=== PATIENT | male | born 1990 | race African-American/Black ===

== ENCOUNTER 2017-09-14 08:55 | Emergency (ER) | payer SELFPAY ==
[~2017-09-14] VITALS: Ht 180.3 cm; Wt 117.9 kg
[2017-09-14 09:23] VITALS: BP 138/74
== END 2017-09-14 09:52 | disposition home or self-care (01) ==
LOC: ER 08:55
DX: J20.9 Acute bronchitis, unspecified (principal); F17.210 Nicotine dependence, cigarettes, uncomplicated

== ENCOUNTER 2018-06-18 18:15 | Emergency (ER) | payer BC, MEDICAID ==
[~2018-06-18] VITALS: Ht 180.3 cm; Wt 113.4 kg
[2018-06-18 19:00] LABS: Urine Bacteria NONE SEEN /hpf (None Seen); Urine Blood Negative /uL (Negative); Urine Specific Gravity 1.028 (1.001-1.035); Urine WBC 1 /hpf (0 - 3)
[2018-06-18 19:10] LABS: Alcohol, Urine < 3.0 mg/dL (0-5); Amphetamine Screen, Urine NEGATIVE (NEGATIVE); Barbiturate Scree,Urine NEGATIVE (NEGATIVE); Benzodiazephine Screen, Urine NEGATIVE (NEGATIVE); Cannabinoid Screen, Urine POSITIVE (NEGATIVE); Cocaine Screen, Urine NEGATIVE (NEGATIVE); Opiate Scree,Urine NEGATIVE (NEGATIVE); Phencyclidine Screen, Urine NEGATIVE (NEGATIVE)
[2018-06-18 19:10] LABS: Alanine Aminotransferase 49 U/L (16-61); Albumin 3.6 g/dL (3.4-5.0); Anion Gap 9 (5-15); Aspartate Aminotransferase 26 U/L (15-37); BUN/Creatinine Ratio 11.5; Blood Urea Nitrogen 13 mg/dL (7-18); Calcium 8.2 mg/dL (8.5-10.1); Carbon Dioxide 22 mmol/L (21-32); Chloride 110 mmol/L (98-107); GFR African American 98 mL/min; GFR Non-African American 81 mL/min; Glucose 115 mg/dL (74-106); Potassium 3.8 mmol/L (3.5-5.1); Sodium 141 mmol/L (136-145)
[2018-06-18 19:15] LABS: Alkaline Phosphatase 79 U/L (45-117); Bilirubin, Total 0.2 mg/dL (0.2-1.0); Total Protein 7.1 g/dL (6.4-8.2)
[2018-06-18 19:34] LABS: Basophils # (auto) 0.1 uL; Basophils % (auto) 0.6 % (0.0-2.0); Eosinophils # (auto) 0.2 uL; Eosinophils % (auto) 1.7 % (0.0-7.0); Hematocrit 44.6 % (41.0-53.0); Hemoglobin 14.8 g/dL (13.5-17.5); Lymphocytes # (auto) 2.4 uL; Lymphocytes % (auto) 27.5 % (10.0-50.0); Mean Corpuscular Hemoglobin 29.3 pg (28.0-32.0); Mean Corpuscular Hgb Conc. 33.2 g/dL (32.0-36.0); Monocytes # (auto) 0.6 uL; Monocytes % (auto) 7.4 % (0.0-12.0); Neutrophils # (auto) 5.4 uL; Neutrophils % (auto) 62.8 % (37.0-80.0); Nucleated Red Blood Cells % 0.1 %; Platelet Count (auto) 255 10^3/uL (140-450); Red Blood Cells 5.07 10^6/uL (4.5-5.90); Red Cell Distribution Width 12.9 % (11.8-14.3); White Blood Cell 8.6 10^3/uL (4.4-10.8)
[2018-06-18] MEDS ORDERED: ASPirin 81 mg TAB PO ONE (21:00)
[2018-06-18 21:39] VITALS: BP 87/60
== END 2018-06-18 22:31 | disposition home or self-care (01) ==
LOC: ER 18:15
DX: R07.89 Other chest pain (principal); F17.210 Nicotine dependence, cigarettes, uncomplicated
CPT/HCPCS: 36415; 71045; 80053; 80307; 81001; 84484; 85025; 85379; 93005

== ENCOUNTER 2018-08-18 20:02 | Emergency (ER) | payer MEDICAID, OTHER ==
[~2018-08-18] VITALS: Ht 180.3 cm; Wt 127.5 kg
[2018-08-18] MEDS ORDERED: ALBUTEROL SULF 2.5 MG/0.5ML(0.5%) NEB SOLN NEB ONE (23:45)
[2018-08-18] MEDS ORDERED: IPRATROPIUM BROM 0.5 MG/2.5ML INH SOL NEB ONE (23:45)
[2018-08-19] VITALS: BP 140/72
== END 2018-08-19 00:11 | disposition home or self-care (01) ==
LOC: ER 20:03
DX: J40 Bronchitis, not specified as acute or chronic (principal); F17.210 Nicotine dependence, cigarettes, uncomplicated
CPT/HCPCS: 71046; 94640; 99283; J7611; J7644

== ENCOUNTER 2018-11-16 14:13 | Emergency (ER) | payer OTHER ==
[~2018-11-16] VITALS: Ht 180.3 cm; Wt 104.3 kg
[2018-11-16 14:48] VITALS: BP 135/83
== END 2018-11-16 19:01 | disposition left against medical advice (07) ==
LOC: ER 14:13
DX: R10.13 Epigastric pain (principal); F17.210 Nicotine dependence, cigarettes, uncomplicated; Z53.29 Procedure and treatment not carried out because of patient's decision for other reasons

== ENCOUNTER 2020-10-20 08:43 | Emergency (ER) | payer MEDICAID, OTHER ==
[~2020-10-20] VITALS: Ht 180.3 cm; Wt 117.9 kg
[2020-10-20 09:23] VITALS: BP 121/85
== END 2020-10-20 09:39 | disposition home or self-care (01) ==
LOC: ER 08:43
DX: H00.015 Hordeolum externum left lower eyelid (principal); H00.021 Hordeolum internum right upper eyelid; F17.210 Nicotine dependence, cigarettes, uncomplicated

== ENCOUNTER 2020-11-03 13:12 | Emergency (ER) | payer MEDICAID ==
[~2020-11-03] VITALS: Ht 180.3 cm; Wt 113.4 kg
[2020-11-03 15:15] VITALS: BP 122/77
== END 2020-11-03 15:20 | disposition home or self-care (01) ==
LOC: ER 13:12
DX: S39.012A Strain of muscle, fascia and tendon of lower back, initial encounter (principal); F17.210 Nicotine dependence, cigarettes, uncomplicated; X50.1XXA Overexertion from prolonged static or awkward postures, initial encounter; Y93.89 Activity, other specified; Y92.89 Other specified places as the place of occurrence of the external cause; Y99.8 Other external cause status
CPT/HCPCS: 72100

== ENCOUNTER 2021-05-19 12:27 | Emergency (ER) | payer MEDICAID ==
[~2021-05-19] VITALS: Ht 180.3 cm; Wt 117.9 kg
[2021-05-19 14:55] VITALS: BP 129/87
== END 2021-05-19 15:07 | disposition home or self-care (01) ==
LOC: ER 12:27
DX: J20.9 Acute bronchitis, unspecified (principal); F17.210 Nicotine dependence, cigarettes, uncomplicated; Z20.822 Contact with and (suspected) exposure to COVID-19
CPT/HCPCS: 36415; 87426

== ENCOUNTER 2021-08-16 02:18 | Emergency (ER) | payer MEDICAID ==
[~2021-08-16] VITALS: Ht 180.3 cm; Wt 117.9 kg
[2021-08-16 02:18] VITALS: BP 159/96
[2021-08-16 05:27] LABS: Urine Bacteria NONE SEEN /hpf (None Seen); Urine Blood Negative /uL (Negative); Urine Mucus FEW (None Seen); Urine Specific Gravity 1.013 (1.001-1.035); Urine WBC 1 /hpf (0 - 3)
== END 2021-08-16 04:54 | disposition home or self-care (01) ==
LOC: ER 02:18
DX: R00.2 Palpitations (principal); F10.10 Alcohol abuse, uncomplicated; F17.210 Nicotine dependence, cigarettes, uncomplicated; F12.10 Cannabis abuse, uncomplicated; F14.10 Cocaine abuse, uncomplicated
CPT/HCPCS: 81001; 93005

== ENCOUNTER 2022-01-24 20:31 | Emergency (ER) | payer MEDICAID ==
[~2022-01-24] VITALS: Ht 180.3 cm; Wt 116.0 kg
[2022-01-24] MEDS ORDERED: PRED20TA2 PO (23:02)
[2022-01-24] MEDS ORDERED: ALBUAER3 IN (23:02)
[2022-01-24] MEDS ORDERED: AZIT250T9 PO (23:02)
[2022-01-25 00:25] VITALS: BP 130/68
== END 2022-01-25 00:30 | disposition home or self-care (01) ==
LOC: ER 20:31
DX: U07.1 COVID-19 (principal); F17.210 Nicotine dependence, cigarettes, uncomplicated; F12.10 Cannabis abuse, uncomplicated
CPT/HCPCS: 36415; 71045; 87804

== ENCOUNTER 2022-12-10 18:22 | Emergency (ER) | payer MEDICAID ==
[~2022-12-10] VITALS: Ht 180.3 cm; Wt 110.8 kg
[~2022-12-10 18:22] MED LIST: ALBUAER3 IN; AZIT-43 PO; PRED20TA2 PO
[2022-12-10] MEDS ORDERED: AMOX875T4 PO (22:35)
[2022-12-10] MEDS ORDERED: IBUP-1456 PO (22:35)
[2022-12-10] MEDS ORDERED: HUR60 MT (22:35)
[2022-12-10] MEDS ORDERED: CLINDAMYCIN 600MG IV 50 ML IV ONE (22:45)
[2022-12-10] MEDS ORDERED: KETOROLAC TROMETH 30 MG/ML 1ML VIAL IV ONE (22:45)
[2022-12-10] MEDS ORDERED: CLINDAMYCIN 300MG IV 50 ML IV ONE ×2 (23:30)
[2022-12-11 05:05] VITALS: BP 120/66
== END 2022-12-11 05:20 | disposition home or self-care (01) ==
LOC: ER 18:24
DX: K04.7 Periapical abscess without sinus (principal); F17.210 Nicotine dependence, cigarettes, uncomplicated; Z79.1 Long term (current) use of non-steroidal anti-inflammatories (NSAID); Z79.2 Long term (current) use of antibiotics; Z79.899 Other long term (current) drug therapy
CPT/HCPCS: 96365; 96375; 99284; J1885; J3490

== ENCOUNTER 2023-02-05 21:38 | Emergency (ER) | payer MEDICAID ==
[~2023-02-05] VITALS: Ht 180.3 cm; Wt 107.7 kg
[~2023-02-05 21:38] MED LIST changes: +AMOX875T4 PO; +HUR60 MT; +IBUP-1456 PO
[2023-02-05 22:00] VITALS: BP 106/59; PULSE 60; RESP 16; TEMP 98.7; O2SAT 100
[2023-02-06] MEDS ORDERED: KETOROLAC TROMETH 60MG/2ML VIAL IM ONE (02:45)
[2023-02-06] MEDS ORDERED: CYCL-837 PO (02:48)
[2023-02-06] MEDS ORDERED: IBUP-1456 PO (02:48)
== END 2023-02-06 03:15 | disposition home or self-care (01) ==
LOC: ER 21:38
DX: S63.501A Unspecified sprain of right wrist, initial encounter (principal); X50.0XXA Overexertion from strenuous movement or load, initial encounter; Y93.89 Activity, other specified; Y92.89 Other specified places as the place of occurrence of the external cause; Y99.8 Other external cause status
CPT/HCPCS: 29125; 73110; 96372; 99283; J1885

== ENCOUNTER 2023-08-26 13:33 | Emergency (ER) | payer MEDICAID ==
[~2023-08-26] VITALS: Ht 177.8 cm; Wt 108.0 kg
[~2023-08-26 13:33] MED LIST changes: +AUG875T PO; +CYCL-837 PO; +LORA24TA PO
[2023-08-26 16:34] VITALS: BP 162/100; PULSE 87; RESP 18; TEMP 98.9; O2SAT 98
[2023-08-26] MEDS ORDERED: MELO7.5T7 PO (16:40)
== END 2023-08-26 17:00 | disposition home or self-care (01) ==
LOC: ER 13:33
DX: M79.671 Pain in right foot (principal); F17.210 Nicotine dependence, cigarettes, uncomplicated; F15.90 Other stimulant use, unspecified, uncomplicated; Z79.899 Other long term (current) drug therapy

== ENCOUNTER 2023-11-16 23:40 | Emergency (ER) | payer MEDICAID ==
[~2023-11-16] VITALS: Ht 180.3 cm; Wt 110.3 kg
[~2023-11-16 23:40] MED LIST changes: +MELO7.5T7 PO
[2023-11-17] MEDS ORDERED: MELO7.5T7 PO (03:55)
[2023-11-17] MEDS: DexAMETHasone SOD PHOS 10MG/1ML VIAL INJ IM ONE (05:43)
[2023-11-17] MEDS: HYDROcodone-ACET 5/325MG TAB PO ONE (05:43)
[2023-11-17 06:00] VITALS: BP 122/72; PULSE 61; RESP 19; TEMP 98; O2SAT 97
== END 2023-11-17 04:07 | disposition home or self-care (01) ==
LOC: ER 23:40
DX: M10.9 Gout, unspecified (principal); F17.210 Nicotine dependence, cigarettes, uncomplicated; F12.10 Cannabis abuse, uncomplicated
CPT/HCPCS: 36415; 84550; 96372; 99283; J1100

== ENCOUNTER 2024-08-18 17:27 | Emergency (ER) | payer MEDICAID ==
[~2024-08-18] VITALS: Ht 180.3 cm; Wt 136.9 kg
[2024-08-18 18:19] VITALS: BP 117/87; PULSE 87; RESP 17; TEMP 98.7; O2SAT 97
[2024-08-18] MEDS ORDERED: CYCL-837 PO (19:58)
--- NOTE | 2024-08-18 20:02 | ED.PDOC ---
Back pain HPI HPI Comments 34-year-old male presents to ER with complaints of neck pain x3 days. Patient reports that he woke up with neck pain three days ago. Denies any trauma/injury. He rates his current pain a 6/10 to neck with radiation towards left upper shoulder. Denies use of medications for current symptoms. Patient presents to ER ambulatory on arrival, with steady gait, in no distress. Denies numbness/tingling, shortness of breath, chest pain, headache or any further symptoms/complaints Chief Complaint: Neck Pain Time Seen by MD: 18:07 Primary Care Provider: [facility] Reviewed Notes: Nurses Notes, Medications, Allergies Allergies: Coded Allergies: NO KNOWN ALLERGIES (Unverified , 11/16/18) Home Meds Active Scripts Ibuprofen (Ibuprofen) 800 Mg Tab, 1 TAB PO TID PRN, #30 TAB 0 Refills Prov:LISSA MENDES 08/18/24 Cyclobenzaprine Hcl (Cyclobenzaprine Hcl) 5 Mg Tab, 1 TAB PO QHSP, #14 TAB 0 Refills Prov:LISSA MENDES 08/18/24 Meloxicam (Meloxicam) 7.5 Mg Tab, 1 TAB PO DAILY, #20 TAB 2 Refills as needed for pain with food Prov:BO LECHUGA Q AIRPORT DRIVER 11/17/23 Meloxicam (Meloxicam) 7.5 Mg Tab, 1 TAB PO DAILY for 30 Days, #30 TAB 0 Refills Prov:MAX WARE F AIRPORT DRIVER 08/26/23 Loratadine & Pseudoephedrine (Loratadine-D 24HR) 24 Hr Tab, 24 HR PO DAILY PRN, #10 TAB Prov:JAMEL LEON WEB SEARCH EVALUATOR 06/05/23 Amoxicillin & Pot Clavulanate (AUGMENTIN TABLET) 875 Mg Tb, 875 MG PO BID for 10 Days, #20 TAB Prov:JAMEL LEON WEB SEARCH EVALUATOR 06/05/23 Cyclobenzaprine Hcl (Cyclobenzaprine Hcl) 5 Mg Tab, 1 TAB PO QPM PRN, #14 TAB 0 Refills Prov:LISSA MENDES 02/06/23 Ibuprofen (Ibuprofen) 800 Mg Tab, 1 TAB PO TID PRN, #30 TAB 0 Refills Prov:LISSA MENDES 02/06/23 Ibuprofen (Ibuprofen) 800 Mg Tab, 1 TAB PO TID PRN, #30 TAB 0 Refills Prov:LISSA MENDES 12/10/22 Benzocaine (Dental) (HURRICAINE SPRAY) 1 Spr Sp, 1 SPR MT QIDP, #1 SPRAY 0 Refills Prov:LISSA MENDES 12/10/22 Amoxicillin & Pot Clavulanate (Amoxicillin/Potassium Cla) 875 Mg Tab, 1 TAB PO BID for 7 Days, #14 TAB 0 Refills Prov:LISSA MENDES 12/10/22 Albuterol Sulfate (VENTOLIN MDI) 90 Mcg Ih, 90 MCG IN Q6HP PRN for 7 Days, #1 MCG Prov:YULIYA BRENNAN MD 01/24/22 Prednisone (Prednisone) 20 Mg Tab, 20 MG PO BID for 4 Days, #8 MG Prov:YULIYA BRENNAN MD 01/24/22 Azithromycin (Azithromycin) 250 Mg Tab, 250 MG PO DAILY, #4 CAP Prov:YULIYA BRENNAN MD 01/24/22 Information Source: Patient Mode of Arrival: Ambulatory Past Medical History PAST MEDICAL HISTORY: HTN Past Medical History (Other): SVT Surgical History: Denies all surgeries Family History Family History: Unknown Social History Smoker: Cigarettes, Less Than 1 Pack/Day Alcohol: Occasionally Drugs: Marijuana Lives In: Home Constitutional: denies: chills, diaphoresis, fatigue, fever, malaise, sweats, weakness, others EENTM: denies: blurred vision, double vision, ear bleeding, ear discharge, ear drainage, ear pain, ear ringing, eye pain, eye redness, hearing loss, mouth pain, mouth swelling, nasal discharge, nose bleeding, nose congestion, nose pain, photophobia, tearing, throat pain, throat swelling, voice changes, others Respiratory: denies: cough, hemoptysis, orthopnea, SOB at rest, shortness of breath, SOB with excertion, stridor, wheezing, others Cardiovascular: denies: chest pain, dizzy spells, diaphoresis, Dyspnea on exertion, edema, irregular heart beat, left arm pain, lightheadedness, palpitations, PND, syncope, others Gastrointestinal: denies: abdomen distended, abdominal pain, blood streaked bowels, constipated, diarrhea, dysphagia, difficulty swallowing, hematemesis, melena, nausea, poor appetite, poor fluid intake, rectal bleeding, rectal pain, vomiting, others Genitourinary: denies: burning, dysuria, flank pain, frequency, hematuria, incontinence, penile discharge, penile sore, pain, testicle pain, testicle swelling, urgency, others Neurological: denies: dizziness, fainting, headache, left sided numbness, left sided weakness, numbness, paresthesia, pre-existing deficit, right sided numbness, right sided weakness, seizure, speech problems, tingling, tremors, weakness, others Musculoskeletal: reports: others (As stated in HPI) Integumetry: denies: bruises, change in color, change in hair/nails, dryness, laceration, lesions, lumps, rash, wounds, others Allergic/Immunocompromised: denies: Difficulty Healing, Frequent Infections, Hives, Itching, others Hematologic/Lymphatic: denies: anemia, blood clots, easy bleeding, easy bruis ing, swollen glands, others Endocrine: denies: excessive hunger, excessive sweating, excessive thirst, exc essive urination, flushing, intolerance to cold, intolerance to heat, unexplained weight gain, unexplained weight loss, others Psychiatric: denies: anxiety, bipolar disorder, depression, hopeless, panic disorder, schizophrenia, sleepless, suicidal, others Physical Exam General Appearance: No Apparent Distress HEENT: Normal ENT Inspection, PERRL/EOMI, Pharynx Normal, TMs Normal Neck: Full Range of Motion, Other (Slight TTP to bilateral cervical paraspinals noted. No crepitus/skin changes noted) Respiratory: Chest Non-Tender, Lungs Clear, No Accessory Muscle Use, No Respiratory Distress, Normal Breath Sounds Cardiovascular: No Murmur, No Gallop, Regular Rate/Rhythm Breast Exam: Deferred Gastrointestinal: NOT DONE Genitalia: Deferred Pelvic: Deferred Rectal: Deferred Extremities: Normal capillary refill, Normal range of motion Neurologic: Alert, medical cash poster II-XII nml as Tested, No Motor Deficits, Normal Affect, Normal Mood, No Sensory Deficits Cerebellar Function: Normal Reflexes: Normal Skin: Dry, Normal Color, Warm Peripheral Pulses: 2+ carotid (R), 2+ carotid (L), 2+ Radial (R), 2+ Radial (L), 2+ Brachial (R), 2+ Brachial (L) Lymphatic: No Adenopathy Was a procedure done? Was a procedure done?: No Sedation Sedation?: No Back Pain Differential Dx Differential Diagnosis: AAA, Fracture, Other (Neurovascular injury) X-Ray, Labs, Meds, VS Vital Signs Date Time Temp Pulse Resp B/P (MAP) Pulse Ox O2 Delivery O2 Flow Rate FiO2 08/18/24 18:19 98.7 87 17 117/87 (97) 97 98.7 08/18/24 18:19 87 17 97 Room Air 08/18/24 17:34 98.2 62 20 143/77 (99) 95 Patient neurovascularly intact Advised on rest/no strenuous activity Advised to follow up with PCP in 1-2 days Patient verbalized understanding and agreeable with current plan of care Advised to return to ER immediately if symptoms worsen Time of 1ST Reevaluation: 19:24 Reevaluation 1ST: N/A Patient Education/Counseling: Diagnosis, Treatment, Prognosis, Need For Follow Up Family Education/Counseling: No Family Present Departure 1 Departure Time of Disposition: 19:52 Impression: Primary Impression: Cervical strain Qualified Codes: S16.1XXA - Strain of muscle, fascia and tendon at neck lev el, initial encounter Disposition: 01 HOME / SELF CARE / HOMELESS Condition: Stable e-Prescriptions Ibuprofen (Ibuprofen) 800 Mg Tab 1 TAB PO TID PRN, #30 TAB 0 Refills Prov: LISSA MENDES 08/18/24 Cyclobenzaprine Hcl (Cyclobenzaprine Hcl) 5 Mg Tab 1 TAB PO QHSP, #14 TAB 0 Refills Prov: LISSA MENDES 08/18/24 Discharged With: Self Critical Care Note Critical Care Time?: No Stability Stability form required: No Heart Score Heart Score: Heart Score Response (Comments) Value History N/A 0 EKG N/A 0 Age N/A 0 Risk Factors N/A 0 Troponin N/A 0 Total 0 LISSA MENDES Aug 18, 2024 20:02
== END 2024-08-18 20:38 | disposition home or self-care (01) ==
LOC: ER 17:27
DX: S16.1XXA Strain of muscle, fascia and tendon at neck level, initial encounter (principal); I10 Essential (primary) hypertension; F17.210 Nicotine dependence, cigarettes, uncomplicated; F12.90 Cannabis use, unspecified, uncomplicated; Z79.899 Other long term (current) drug therapy; X58.XXXA Exposure to other specified factors, initial encounter; Y93.89 Activity, other specified; Y92.89 Other specified places as the place of occurrence of the external cause; Y99.8 Other external cause status

== ENCOUNTER 2024-11-02 21:33 | Emergency (ER) | payer MEDICAID ==
[~2024-11-02] VITALS: Ht 180.3 cm; Wt 141.2 kg
--- NOTE | 2024-11-02 22:13 | ED.PDOC ---
History of Present Illness HPI Comments 34 y.o male with PMHx of HTN and SVT, presents to the ED for an evaluation of hypotension associated with fatigue. Patient reports checking his blood pressure today, read 104/64 with heart rate of 44 and was concerned of hypotension. Patient reports the past couple of days feeling fatigue but denies chest pain, palpitations, dizziness, SOB, fever, chills or recent illness. Patient takes half a tablet of his BP medication as advised by his hospital admissions officer. Patient mentions feeling anxious and admits the past couple of weeks smoking about 4 cigarettes a day and drinking alcohol occasionally but has since stopped. Time Seen by MD: 21:58 Primary Care Provider: [facility] the [facility] Notes: Nurses Notes, Medications, Allergies Allergies: Coded Allergies: NO KNOWN ALLERGIES (Unverified , 11/16/18) Home Meds Active Scripts Ibuprofen (Ibuprofen) 800 Mg Tab, 1 TAB PO TID PRN, #30 TAB 0 Refills Prov:LISSA MENDES 08/18/24 Cyclobenzaprine Hcl (Cyclobenzaprine Hcl) 5 Mg Tab, 1 TAB PO QHSP, #14 TAB 0 Refills Prov:LISSA MENDES 08/18/24 Meloxicam (Meloxicam) 7.5 Mg Tab, 1 TAB PO DAILY, #20 TAB 2 Refills as needed for pain with food Prov:BO LECHUGA DEALER DEVELOPMENT MANAGER 11/17/23 Meloxicam (Meloxicam) 7.5 Mg Tab, 1 TAB PO DAILY for 30 Days, #30 TAB 0 Refills Prov:MAX WARE F DEALER DEVELOPMENT MANAGER 08/26/23 Loratadine & Pseudoephedrine (Loratadine-D 24HR) 24 Hr Tab, 24 HR PO DAILY PRN, #10 TAB Prov:JAMEL LEON INSTRUMENT SPECIALIST 06/05/23 Amoxicillin & Pot Clavulanate (AUGMENTIN TABLET) 875 Mg Tb, 875 MG PO BID for 10 Days, #20 TAB Prov:JAMEL LEON INSTRUMENT SPECIALIST 06/05/23 Cyclobenzaprine Hcl (Cyclobenzaprine Hcl) 5 Mg Tab, 1 TAB PO QPM PRN, #14 TAB 0 Refills Prov:LISSA MENDES 02/06/23 Ibuprofen (Ibuprofen) 800 Mg Tab, 1 TAB PO TID PRN, #30 TAB 0 Refills Prov:LISSA MENDES 02/06/23 Ibuprofen (Ibuprofen) 800 Mg Tab, 1 TAB PO TID PRN, #30 TAB 0 Refills Prov:LISSA MENDES 12/10/22 Benzocaine (Dental) (HURRICAINE SPRAY) 1 Spr Sp, 1 SPR MT QIDP, #1 SPRAY 0 Refills Prov:LISSA MENDES 12/10/22 Amoxicillin & Pot Clavulanate (Amoxicillin/Potassium Cla) 875 Mg Tab, 1 TAB PO BID for 7 Days, #14 TAB 0 Refills Prov:LISSA MENDES 12/10/22 Albuterol Sulfate (VENTOLIN MDI) 90 Mcg Ih, 90 MCG IN Q6HP PRN for 7 Days, #1 MCG Prov:YULIYA BRENNAN MD 01/24/22 Prednisone (Prednisone) 20 Mg Tab, 20 MG PO BID for 4 Days, #8 MG Prov:YULIYA BRENNAN MD 01/24/22 Azithromycin (Azithromycin) 250 Mg Tab, 250 MG PO DAILY, #4 CAP Prov:YULIYA BRENNAN MD 01/24/22 Information Source: Patient Mode of Arrival: Ambulatory Severity: Moderate Timing: Hours Duration: Since onset Past Medical History PAST MEDICAL HISTORY: HTN Past Medical History (Other): SVT Surgical History: Denies all surgeries Family History Family History: Unknown Social History Smoker: Cigarettes, Less Than 1 Pack/Day Alcohol: Occasionally Drugs: Marijuana Lives In: Home Constitutional: reports: fatigue; denies: chills, diaphoresis, fever, malaise, sweats, weakness, others EENTM: denies: blurred vision, double vision, ear bleeding, ear discharge, ear drainage, ear pain, ear ringing, eye pain, eye redness, hearing loss, mouth pain, mouth swelling, nasal discharge, nose bleeding, nose congestion, nose pain, photophobia, tearing, throat pain, throat swelling, voice changes, others Respiratory: denies: cough, hemoptysis, orthopnea, SOB at rest, shortness of breath, SOB with excertion, stridor, wheezing, others Cardiovascular: denies: chest pain, dizzy spells, diaphoresis, Dyspnea on exertion, edema, irregular heart beat, left arm pain, lightheadedness, palpitations, PND, syncope, others Gastrointestinal: denies: abdomen distended, abdominal pain, blood streaked bowels, constipated, diarrhea, dysphagia, difficulty swallowing, hematemesis, melena, nausea, poor appetite, poor fluid intake, rectal bleeding, rectal pain, vomiting, others Genitourinary: denies: burning, dysuria, flank pain, frequency, hematuria, incontinence, penile discharge, penile sore, pain, testicle pain, testicle swelling, urgency, others Neurological: denies: dizziness, fainting, headache, left sided numbness, left sided weakness, numbness, paresthesia, pre-existing deficit, right sided numbness, right sided weakness, seizure, speech problems, tingling, tremors, weakness, others Musculoskeletal: denies: back pain, gout, joint pain, joint swelling, muscle pain, muscle stiffness, neck pain, others Integumetry: denies: bruises, change in color, change in hair/nails, dryness, laceration, lesions, lumps, rash, wounds, others Allergic/Immunocompromised: denies: Difficulty Healing, Frequent Infections, Hives, Itching, others Hematologic/Lymphatic: denies: anemia, blood clots, easy bleeding, easy bruising, swollen glands, others Endocrine: denies: excessive hunger, excessive sweating, excessive thirst, excessive urination, flushing, intolerance to cold, intolerance to heat, unexplained weight gain, unexplained weight loss, others Psychiatric: reports: anxiety; denies: bipolar disorder, depression, hopeless, panic disorder, schizophrenia, sleepless, suicidal, others All Other Systems: Reviewed and Negative Physical Exam General Appearance: Other (appears anxious ) HEENT: Normal ENT Inspection, Pharynx Normal, TMs Normal Neck: Full Range of Motion, Non-Tender, Normal, Normal Inspection Respiratory: Chest Non-Tender, Lungs Clear, No Accessory Muscle Use, No Res piratory Distress, Normal Breath Sounds Cardiovascular: No Edema, No JVD, No Murmur, No Gallop, Normal Peripheral Pulses, Regular Rate/Rhythm Breast Exam: Deferred Gastrointestinal: No Organomegaly, Non Tender, No Pulsatile Mass, Normal Bowel Sounds, Soft Genitalia: Deferred Pelvic: Deferred Rectal: Deferred Extremities: No calf tenderness, Normal capillary refill, Normal inspection, Normal range of motion, Non-tender, No pedal edema Musculoskeletal : Apperance: Normal Neurologic: Alert, sc[place]man II-XII nml as Tested, No Motor Deficits, Normal Affect, Normal Mood, No Sensory Deficits Cerebellar Function: Normal Reflexes: Normal Skin: Dry, Normal Color, Warm Lymphatic: No Adenopathy Was a procedure done? Was a procedure done?: No Differential Dx Considerations may include: Anxiety, Dehydration, Electrolyte imbalance, hypotension, bradycardia X-Ray, Labs, Meds, VS Vital Signs Date Time Temp Pulse Resp B/P (MAP) Pulse Ox O2 Delivery O2 Flow Rate FiO2 11/02/24 22:06 67 11/02/24 21:50 98.1 77 18 129/85 (100) 98 98.1 Lab Test 11/02/24 22:52 11/02/24 22:04 Range/Units Troponin I High Sensitivity Pending 6 </=54 ng/L White Blood Count 8.2 4.4-10.8 10^3/uL Red Blood Count 5.16 4.5-5.90 10^6/uL Hemoglobin 14.9 13.5-17.5 g/dL Hematocrit 44.5 41.0-53.0 % Mean Corpuscular Volume 86.2 80.0-100.0 fL Mean Corpuscular Hemoglobin 28.9 28.0-32.0 pg Mean Corpuscular Hemoglobin Concent 33.5 32.0-36.0 g/dL Red Cell Distribution Width 13.1 11.8-14.3 % Platelet Count 217 140-450 10^3/uL Mean Platelet Volume 7.7 6.9-10.8 fL Neutrophils (%) (Auto) 57.2 37.0-80.0 % Lymphocytes (%) (Auto) 31.0 10.0-50.0 % Monocytes (%) (Auto) 10.0 0.0-12.0 % Eosinophils (%) (Auto) 1.2 0.0-7.0 % Basophils (%) (Auto) 0.6 0.0-2.0 % Neutrophils # (Auto) 4.7 1.6-8.6 10 ^3/uL Lymphocytes # (Auto) 2.5 0.4-5.4 10 ^3/uL Monocytes # (Auto) 0.8 0-1.3 10 ^3/uL Eosinophils # (Auto) 0.1 0-0.8 10 ^3/uL Basophils # (Auto) 0 0-0.2 10 ^3/uL Nucleated Red Blood Cells 0.1 % Sodium Level 138 136-145 mmol/L Potassium Level 3.7 3.5-5.1 mmol/L Chloride Level 108 H 98-107 mmol/L Carbon Dioxide Level 23 20-31 mmol/L Anion Gap 7 5-15 Blood Urea Nitrogen 13 9-23 mg/dL Creatinine 1.07 0.700-1.30 mg/dL Glomerular Filtration Rate Calc 92 >90 mL/min BUN/Creatinine Ratio 12.1 10.0-20.0 Serum Glucose 125 H 74-106 mg/dL Calcium Level 9.6 8.7-10.4 mg/dL Total Bilirubin 0.4 0.2-1.0 mg/dL Aspartate Amino Transferase (AST) 28 13-40 U/L Alanine Aminotransferase (ALT) 37 7-40 U/L Alkaline Phosphatase 64 46-116 U/L Total Protein 7.0 5.7-8.2 g/dL Albumin 4.4 3.2-4.8 g/dL X-Ray, Labs, Meds, VS Comment Patient was hemoglobin came back at five Patient will be transfused with 2 units packed red blood cells Patient will be admitted for severe anemia due to chronic blood loss Recommend GI consult and possible surgical consult in the morning Time of 1ST Reevaluation: 22:12 Reevaluation 1ST: Unchanged Patient Education/Counseling: Diagnosis, Treatment, Prognosis Family Education/Counseling: No Family Present Departure 1 Departure Time of Disposition: 23:31 Impression: Primary Impression: Lower GI bleed Additional Impression: Blood loss anemia Disposition: ADMITTED INPATIENT Condition: Guarded Critical Care Note Critical Care Time?: Yes (30 min-critical care time only) Critical care comment: Due to a high probability of clinically significant, life threatening deterioration, the patient required my highest level of preparedness to intervene emergently and I personally spent this critical care time directly and personally managing the patient. This critical care time included obtaining a history; examining the patient; pulse oximetry; ordering and review of studies; arranging urgent treatment with development of a management plan; evaluation of patient's response to treatment; frequent reassessment; and, discussions with other providers. This critical care time was performed to assess and manage the high probability of imminent, life-threatening deterioration that could result in multi-organ failure. It was exclusive of separately billable procedures and treating other patients and teaching time. Stability Stability form required: No I personally scribed for NAVARRO,CHRISTOPHER E INSTRUMENT SPECIALIST ([email or web address]) on 11/02/24 at 22:13. Electronically submitted by Alia Mckoy ([facility]). TITI NAVARRO Nov 02, 2024 22:13
[2024-11-02 22:29] LABS: Basophils # (auto) 0 10 ^3/uL (0-0.2); Basophils % (auto) 0.6 % (0.0-2.0); Eosinophils # (auto) 0.1 10 ^3/uL (0-0.8); Eosinophils % (auto) 1.2 % (0.0-7.0); Hematocrit 44.5 % (41.0-53.0); Hemoglobin 14.9 g/dL (13.5-17.5); Lymphocytes # (auto) 2.5 10 ^3/uL (0.4-5.4); Mean Corpuscular Hemoglobin 28.9 pg (28.0-32.0); Mean Corpuscular Hgb Conc. 33.5 g/dL (32.0-36.0); Mean Corpuscular Volume 86.2 fL (80.0-100.0); Monocytes # (auto) 0.8 10 ^3/uL (0-1.3); Neutrophils # (auto) 4.7 10 ^3/uL (1.6-8.6); Neutrophils % (auto) 57.2 % (37.0-80.0); Nucleated Red Blood Cells % 0.1 %; Platelet Count (auto) 217 10^3/uL (140-450); Red Blood Cells 5.16 10^6/uL (4.5-5.90); Red Cell Distribution Width 13.1 % (11.8-14.3); White Blood Cell 8.2 10^3/uL (4.4-10.8)
--- NOTE | 2024-11-02 22:36 | DVH ---
CHEST RADIOGRAPH Indication: cp Technique: Single frontal view of the chest was obtained COMPARISON: CHEST PORTABLE on DOS: 01/24/22 FINDINGS: Lines and Tubes: None Lungs: Clear Pleura: No effusion. No pneumothorax. Cardiomediastinal contours: Unremarkable Bones: Unremarkable IMPRESSION: No abnormality demonstrated.
[2024-11-02 22:40] LABS: Alanine Aminotransferase 37 U/L (7-40); Albumin 4.4 g/dL (3.2-4.8); Alkaline Phosphatase 64 U/L (46-116); Anion Gap 7 (5-15); Aspartate Aminotransferase 28 U/L (13-40); BUN/Creatinine Ratio 12.1 (10.0-20.0); Bilirubin, Total 0.4 mg/dL (0.2-1.0); Blood Urea Nitrogen 13 mg/dL (9-23); Calcium 9.6 mg/dL (8.7-10.4); Carbon Dioxide 23 mmol/L (20-31); Potassium 3.7 mmol/L (3.5-5.1); Sodium 138 mmol/L (136-145)
[2024-11-02 22:45] LABS: Chloride 108 mmol/L (98-107); Glucose 125 mg/dL (74-106)
[2024-11-03 05:15] VITALS: BP 122/82; PULSE 57; RESP 18; TEMP 98.4; O2SAT 95
--- NOTE | 2024-11-03 07:00 | ECG ---
[facility] Test Date: 2024-11-02 Test Time: 22:06:26 Pat Name: ALFREDA SCHROEDER Department: ER Room: Gender: M Stitcher Utility: : 1990 Requested By: TITI NAVARRO Order Number: [id number] Reading MD: Oliver Bey Measurements Intervals [place] Rate: 67 P: 40 [place]: 172 QRS: 36 QRSD: 107 T: 19 QT: 387 QTc: 409 Interpretive Statements Sinus rhythm Low voltage, precordial leads Baseline wander in lead(s) V3,V6 Electronically Signed On 11-04-2024 17:09:14 PDT by Oliver Bey Please click the below link to view image of tracing.
== END 2024-11-03 05:19 | disposition home or self-care (01) ==
LOC: ER 21:38
DX: K92.2 Gastrointestinal hemorrhage, unspecified (principal); D50.0 Iron deficiency anemia secondary to blood loss (chronic); I10 Essential (primary) hypertension; F17.210 Nicotine dependence, cigarettes, uncomplicated; Z79.899 Other long term (current) drug therapy; Z98.890 Other specified postprocedural states
CPT/HCPCS: 36415; 71045; 80053; 84484; 85025; 93005; 99291

== ENCOUNTER → 2024-11-19 20:14 | Emergency (ER) | payer MEDICAID ==
[~2024-11-19] VITALS: Ht 180.3 cm; Wt 148.0 kg
[2024-11-19 20:15] VITALS: BP 129/80; RESP 18; TEMP 97.4; O2SAT 100
[2024-11-19 20:41] VITALS: PULSE 58
--- NOTE | 2024-11-19 20:41 | ED.PDOC ---
HPI Comments 34-year-old male who came to ER for palpitations. Patient has history of SVTs, was on metoprolol but was discontinued a week ago. Since then patient has been having episodes of palpitations and shortness a breath. Noted worsening of palpitations few hours ago, associated weakness, easy fatigability and shortness a breath with exertion. This prompted patient to come to the ER. Blood pressure upon arrival was 129/80 mm Hg, with a heart rate of 59 Chief Complaint: Palpitations Time Seen by MD: 20:40 Primary Care Provider: [facility] Notes: Nurses Notes Allergies: Coded Allergies: NO KNOWN ALLERGIES (Unverified , 11/16/18) Home Meds Active Scripts Ibuprofen (Ibuprofen) 800 Mg Tab, 1 TAB PO TID PRN, #30 TAB 0 Refills Prov:LISSA MENDES 08/18/24 Cyclobenzaprine Hcl (Cyclobenzaprine Hcl) 5 Mg Tab, 1 TAB PO QHSP, #14 TAB 0 Refills Prov:LISSA MENDES 08/18/24 Meloxicam (Meloxicam) 7.5 Mg Tab, 1 TAB PO DAILY, #20 TAB 2 Refills as needed for pain with food Prov:BO LECHUGA PIECE WORKER 11/17/23 Meloxicam (Meloxicam) 7.5 Mg Tab, 1 TAB PO DAILY for 30 Days, #30 TAB 0 Refills Prov:MAX WARE F PIECE WORKER 08/26/23 Loratadine & Pseudoephedrine (Loratadine-D 24HR) 24 Hr Tab, 24 HR PO DAILY PRN, #10 TAB Prov:JAMEL LEON COVER SEAMER 06/05/23 Amoxicillin & Pot Clavulanate (AUGMENTIN TABLET) 875 Mg Tb, 875 MG PO BID for 10 Days, #20 TAB Prov:JAMEL LEON COVER SEAMER 06/05/23 Cyclobenzaprine Hcl (Cyclobenzaprine Hcl) 5 Mg Tab, 1 TAB PO QPM PRN, #14 TAB 0 Refills Prov:LISSA MENDES 02/06/23 Ibuprofen (Ibuprofen) 800 Mg Tab, 1 TAB PO TID PRN, #30 TAB 0 Refills Prov:LISSA MENDES 02/06/23 Ibuprofen (Ibuprofen) 800 Mg Tab, 1 TAB PO TID PRN, #30 TAB 0 Refills Prov:LISSA MENDES 12/10/22 Benzocaine (Dental) (HURRICAINE SPRAY) 1 Spr Sp, 1 SPR MT QIDP, #1 SPRAY 0 Refills Prov:LISSA MENDES 12/10/22 Amoxicillin & Pot Clavulanate (Amoxicillin/Potassium Cla) 875 Mg Tab, 1 TAB PO BID for 7 Days, #14 TAB 0 Refills Prov:LISSA MENDES 12/10/22 Albuterol Sulfate (VENTOLIN MDI) 90 Mcg Ih, 90 MCG IN Q6HP PRN for 7 Days, #1 MCG Prov:YULIYA BRENNAN MD 01/24/22 Prednisone (Prednisone) 20 Mg Tab, 20 MG PO BID for 4 Days, #8 MG Prov:YULIYA BRENNAN MD 01/24/22 Azithromycin (Azithromycin) 250 Mg Tab, 250 MG PO DAILY, #4 CAP Prov:YULIYA BRENNAN MD 01/24/22 Information Source: Patient Mode of Arrival: Ambulatory Severity: Moderate Timing: Days Duration: Intermittent Quality: Other (Palpitations) Onset: With Light Exertion Cardiac Risk Factors: HTN, Other (SVT) History of: Similar pain in past Associated Signs and Symptoms: SOB, Palpitations Past Medical History PAST MEDICAL HISTORY: HTN Past Medical History (Other): SVTs Surgical History: Denies all surgeries Family History Family History: Reviewed,noncontributory to illness Social History Smoker: Cigarettes, Less Than 1 Pack/Day Alcohol: Occasionally Drugs: Marijuana Lives In: Home Constitutional: reports: fatigue, weakness; denies: chills, diaphoresis, fever, malaise, sweats, others EENTM: denies: blurred vision, double vision, ear bleeding, ear discharge, ear drainage, ear pain, ear ringing, eye pain, eye redness, hearing loss, mouth pain, mouth swelling, nasal discharge, nose bleeding, nose congestion, nose pain, photophobia, tearing, throat pain, throat swelling, voice changes, others Respiratory: reports: shortness of breath, SOB with excertion; denies: cough, hemoptysis, orthopnea, SOB at rest, stridor, wheezing, others Cardiovascular: reports: dizzy spells, palpitations; denies: chest pain, diaphoresis, Dyspnea on exertion, edema, irregular heart beat, left arm pain, lightheadedness, PND, syncope, others Gastrointestinal: denies: abdomen distended, abdominal pain, blood streaked bowels, constipated, diarrhea, dysphagia, difficulty swallowing, hematemesis, melena, nausea, poor appetite, poor fluid intake, rectal bleeding, rectal pain, vomiting, others Genitourinary: denies: burning, dysuria, flank pain, frequency, hematuria, incontinence, penile discharge, penile sore, pain, testicle pain, testicle swelling, urgency, others Neurological: denies: dizziness, fainting, headache, left sided numbness, left sided weakness, numbness, paresthesia, pre-existing deficit, right sided numbness, right sided weakness, seizure, speech problems, tingling, tremors, weakness, others Musculoskeletal: denies: back pain, gout, joint pain, joint swelling, muscle pain, muscle stiffness, neck pain, others Integumetry: denies: bruises, change in color, change in hair/nails, dryness, laceration, lesions, lumps, rash, wounds, others Allergic/Immunocompromised: denies: Difficulty Healing, Frequent Infections, Hives, Itching, others Hematologic/Lymphatic: denies: anemia, blood clots, easy bleeding, easy bruising, swollen glands, others Endocrine: denies: excessive hunger, excessive sweating, excessive thirst, excessive urination, flushing, intolerance to cold, intolerance to heat, unexpla ined weight gain, unexplained weight loss, others Psychiatric: denies: anxiety, bipolar disorder, depression, hopeless, panic disorder, schizophrenia, sleepless, suicidal, others Physical Exam General Appearance: No Apparent Distress, Normal HEENT: Normal ENT Inspection, Pharynx Normal, TMs Normal Neck: Full Range of Motion, Non-Tender, Normal, Normal Inspection Respiratory: Chest Non-Tender, Lungs Clear, No Accessory Muscle Use, No Respiratory Distress, Normal Breath Sounds Cardiovascular: No Edema, No JVD, No Murmur, No Gallop, Normal Peripheral Pulses, Regular Rate/Rhythm Breast Exam: Deferred Gastrointestinal: No Organomegaly, Non Tender, No Pulsatile Mass, Normal Bowel Sounds, Soft Genitalia: Deferred Pelvic: Deferred Rectal: Deferred Extremities: No calf tenderness, Normal capillary refill, Normal inspection, Normal range of motion, Non-tender, No pedal edema Musculoskeletal : Apperance: Normal Neurologic: Alert, hvac residential service technician II-XII nml as Tested, No Motor Deficits, Normal Affect, Normal Mood, No Sensory Deficits Cerebellar Function: Normal Reflexes: Normal Skin: Dry, Normal Color, Warm Lymphatic: No Adenopathy EKG EKG : Pulse Rate (adult): 58 Cardiac Rhythm: NSR Comments Atrial premature complex Was a procedure done? Was a procedure done?: No CP Differential Dx Differential Diagnosis: A-fib, Angina, Anxiety / Panic Attack, Electrolyte Disorder, Hyperthyroidism, Hyperventilation, PSVT, Sinus Tachycardia X-Ray, Labs, Meds, VS Vital Signs Date Time Temp Pulse Resp B/P (MAP) Pulse Ox O2 Delivery O2 Flow Rate FiO2 11/19/24 20:41 58 11/19/24 20:21 58 11/19/24 20:15 97.4 54 18 129/80 (96) 100 97.4 Lab Test 11/19/24 20:33 Range/Units White Blood Count 9.5 4.4-10.8 10^3/uL Red Blood Count 5.38 4.5-5.90 10^6/uL Hemoglobin 15.4 13.5-17.5 g/dL Hematocrit 45.6 41.0-53.0 % Mean Corpuscular Volume 84.9 80.0-100.0 fL Mean Corpuscular Hemoglobin 28.6 28.0-32.0 pg Mean Corpuscular Hemoglobin Concent 33.7 32.0-36.0 g/dL Red Cell Distribution Width 13.1 11.8-14.3 % Platelet Count 229 140-450 10^3/uL Mean Platelet Volume 7.4 6.9-10.8 fL Neutrophils (%) (Auto) 59.6 37.0-80.0 % Lymphocytes (%) (Auto) 28.6 10.0-50.0 % Monocytes (%) (Auto) 9.1 0.0-12.0 % Eosinophils (%) (Auto) 1.4 0.0-7.0 % Basophils (%) (Auto) 1.3 0.0-2.0 % Neutrophils # (Auto) 5.7 1.6-8.6 10 ^3/uL Lymphocytes # (Auto) 2.7 0.4-5.4 10 ^3/uL Monocytes # (Auto) 0.9 0-1.3 10 ^3/uL Eosinophils # (Auto) 0.1 0-0.8 10 ^3/uL Basophils # (Auto) 0.1 0-0.2 10 ^3/uL Nucleated Red Blood Cells 0.1 % Sodium Level 138 136-145 mmol/L Potassium Level 3.8 3.5-5.1 mmol/L Chloride Level 105 98-107 mmol/L Carbon Dioxide Level 23 20-31 mmol/L Anion Gap 10 5-15 Blood Urea Nitrogen 13 9-23 mg/dL Creatinine 0.93 0.700-1.30 mg/dL Glomerular Filtration Rate Calc 109 >90 mL/min BUN/Creatinine Ratio 14.0 10.0-20.0 Serum Glucose 97 74-106 mg/dL Calcium Level 10.0 8.7-10.4 mg/dL Magnesium Level 2.0 1.6-2.6 mg/dL Total Bilirubin 0.3 0.2-1.0 mg/dL Aspartate Amino Transferase (AST) 23 13-40 U/L Alanine Aminotransferase (ALT) 44 H 7-40 U/L Alkaline Phosphatase 66 46-116 U/L Troponin I High Sensitivity 6 </=54 ng/L Total Protein 7.6 5.7-8.2 g/dL Albumin 4.9 H 3.2-4.8 g/dL Time of 1ST Reevaluation: 20:36 Reevaluation 1ST: Unchanged Patient Education/Counseling: Diagnosis, Treatment Family Education/Counseling: No Family Present Departure 1 Departure Time of Disposition: 22:30 Impression: Primary Impression: Palpitations Disposition: 01 HOME / SELF CARE / HOMELESS Condition: Stable Discharged With: Self Critical Care Note Critical Care Time?: No Stability Stability form required: No Heart Score Heart Score: Heart Score Response (Comments) Value History Moderate Suspicious 1 EKG Normal 0 Age <45 0 Risk Factors 1 or 2 risk factors 1 Troponin Normal limit 0 Total 2 I personally scribed for BERNY LARA MD ([email or web address]) on 11/19/24 at 20:41. Electronically submitted by Steve Jang ([email or web address]). BERNY LARA MD November 19, 2024 20:41
[2024-11-19 20:43] LABS: Basophils # (auto) 0.1 10 ^3/uL (0-0.2); Basophils % (auto) 1.3 % (0.0-2.0); Eosinophils # (auto) 0.1 10 ^3/uL (0-0.8); Eosinophils % (auto) 1.4 % (0.0-7.0); Hematocrit 45.6 % (41.0-53.0); Hemoglobin 15.4 g/dL (13.5-17.5); Lymphocytes # (auto) 2.7 10 ^3/uL (0.4-5.4); Lymphocytes % (auto) 28.6 % (10.0-50.0); Mean Corpuscular Hemoglobin 28.6 pg (28.0-32.0); Mean Corpuscular Hgb Conc. 33.7 g/dL (32.0-36.0); Mean Corpuscular Volume 84.9 fL (80.0-100.0); Monocytes # (auto) 0.9 10 ^3/uL (0-1.3); Monocytes % (auto) 9.1 % (0.0-12.0); Neutrophils # (auto) 5.7 10 ^3/uL (1.6-8.6); Neutrophils % (auto) 59.6 % (37.0-80.0); Nucleated Red Blood Cells % 0.1 %; Platelet Count (auto) 229 10^3/uL (140-450); Red Blood Cells 5.38 10^6/uL (4.5-5.90); Red Cell Distribution Width 13.1 % (11.8-14.3); White Blood Cell 9.5 10^3/uL (4.4-10.8)
[2024-11-19 21:00] LABS: Alkaline Phosphatase 66 U/L (46-116); Anion Gap 10 (5-15); Aspartate Aminotransferase 23 U/L (13-40); Bilirubin, Total 0.3 mg/dL (0.2-1.0); Blood Urea Nitrogen 13 mg/dL (9-23); Carbon Dioxide 23 mmol/L (20-31); Chloride 105 mmol/L (98-107); Glucose 97 mg/dL (74-106); Potassium 3.8 mmol/L (3.5-5.1); Sodium 138 mmol/L (136-145); Total Protein 7.6 g/dL (5.7-8.2)
[2024-11-19 21:44] LABS: Alanine Aminotransferase 44 U/L (7-40); Albumin 4.9 g/dL (3.2-4.8)
--- NOTE | 2024-11-20 10:36 | ECG ---
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
== END | disposition left against medical advice (07) ==
LOC: ER 20:14
DX: R00.2 Palpitations (principal); R06.02 Shortness of breath; R53.1 Weakness; I10 Essential (primary) hypertension; F17.210 Nicotine dependence, cigarettes, uncomplicated; Z79.899 Other long term (current) drug therapy
CPT/HCPCS: 36415; 80053; 83735; 84484; 85025; 93005

== ENCOUNTER 2025-04-14 17:14 | Emergency (ER) | payer MEDICAID ==
[~2025-04-14] VITALS: Ht 264.2 cm; Wt 136.1 kg
[2025-04-14 17:16] VITALS: BP 133/87; PULSE 76; RESP 20; TEMP 97.4; O2SAT 95
== END 2025-04-14 17:46 | disposition left against medical advice (07) ==
LOC: ER 17:16
DX: I10 Essential (primary) hypertension (principal)

== ENCOUNTER 2025-05-14 15:35 | Emergency (ER) | payer MEDICAID ==
[~2025-05-14] VITALS: Ht 180.3 cm; Wt 371.0 kg
[2025-05-14 15:40] VITALS: BP 125/78; RESP 16; TEMP 97.5; O2SAT 97
[2025-05-14 16:42] VITALS: PULSE 72
--- NOTE | 2025-05-14 16:42 | ED.PDOC ---
History of Present Illness HPI Comments 35-year-old male presents to the ER with the chief complain of anxiety. Patient reports on coming into the ER due from heart feeling off, and took metoprolol. Patient assumes the his heart felt off due from taking two Tequila shots earlier today. Social history of quit tobacco use six months ago. Denies any other symptoms at this time. Denies chills, fever, N/V/D, SOB. No other associated symptoms, modifiers, recent injuries or sick contacts present at this time. Chief Complaint: Anxiety Time Seen by MD: 16:30 Primary Care Provider: [facility] Reviewed Notes: Nurses Notes, Medications, Allergies Allergies: Coded Allergies: NO KNOWN ALLERGIES (Unverified , 11/16/18) Home Meds Active Scripts Ibuprofen (Ibuprofen) 800 Mg Tab, 1 TAB PO TID PRN, #30 TAB 0 Refills Prov:LISSA MENDES 08/18/24 Cyclobenzaprine Hcl (Cyclobenzaprine Hcl) 5 Mg Tab, 1 TAB PO QHSP, #14 TAB 0 Refills Prov:LISSA MENDES 08/18/24 Meloxicam (Meloxicam) 7.5 Mg Tab, 1 TAB PO DAILY, #20 TAB 2 Refills as needed for pain with food Prov:BO LECHUGA FREELANCE DIRECTOR 11/17/23 Meloxicam (Meloxicam) 7.5 Mg Tab, 1 TAB PO DAILY for 30 Days, #30 TAB 0 Refills Prov:MAX WARE F FREELANCE DIRECTOR 08/26/23 Loratadine & Pseudoephedrine (Loratadine-D 24HR) 24 Hr Tab, 24 HR PO DAILY PRN, #10 TAB Prov:JAMEL LEON DETAIL SERGEANT 06/05/23 Amoxicillin & Pot Clavulanate (AUGMENTIN TABLET) 875 Mg Tb, 875 MG PO BID for 10 Days, #20 TAB Prov:JAMEL LEONP 06/05/23 Cyclobenzaprine Hcl (Cyclobenzaprine Hcl) 5 Mg Tab, 1 TAB PO QPM PRN, #14 TAB 0 Refills Prov:LISSA MENDES 02/06/23 Ibuprofen (Ibuprofen) 800 Mg Tab, 1 TAB PO TID PRN, #30 TAB 0 Refills Prov:LISSA MENDES 02/06/23 Ibuprofen (Ibuprofen) 800 Mg Tab, 1 TAB PO TID PRN, #30 TAB 0 Refills Prov:LISSA MENDES 12/10/22 Benzocaine (Dental) (HURRICAINE SPRAY) 1 Spr Sp, 1 SPR MT QIDP, #1 SPRAY 0 Refills Prov:LISSA MENDES 12/10/22 Amoxicillin & Pot Clavulanate (Amoxicillin/Potassium Cla) 875 Mg Tab, 1 TAB PO BID for 7 Days, #14 TAB 0 Refills Prov:LISSA MENDES 12/10/22 Albuterol Sulfate (VENTOLIN MDI) 90 Mcg Ih, 90 MCG IN Q6HP PRN for 7 Days, #1 MCG Prov:YULIYA BRENNAN MD 01/24/22 Prednisone (Prednisone) 20 Mg Tab, 20 MG PO BID for 4 Days, #8 MG Prov:YULIYA BRENNAN MD 01/24/22 Azithromycin (Azithromycin) 250 Mg Tab, 250 MG PO DAILY, #4 CAP Prov:YULIYA BRENNAN MD 01/24/22 Information Source: Patient Mode of Arrival: Ambulatory Severity: Moderate Timing: Hours Duration: Since onset Prehospital treatment: None Past Medical History PAST MEDICAL HISTORY: Denies Surgical History: Denies all surgeries Family History Family History: Reviewed,noncontributory to illness, Unknown Social History Smoker: Quit Less Than 1 Year Alcohol: Occasionally Drugs: Marijuana Lives In: Home Constitutional: denies: chills, diaphoresis, fatigue, fever, malaise, sweats, weakness, others EENTM: denies: blurred vision, double vision, ear bleeding, ear discharge, ear drainage, ear pain, ear ringing, eye pain, eye redness, hearing loss, mouth pain, mouth swelling, nasal discharge, nose bleeding, nose congestion, nose pain, photophobia, tearing, throat pain, throat swelling, voice changes, others Respiratory: denies: cough, hemoptysis, orthopnea, SOB at rest, shortness of breath, SOB with excertion, stridor, wheezing, others Cardiovascular: denies: chest pain, dizzy spells, diaphoresis, Dyspnea on exertion, edema, irregular heart beat, left arm pain, lightheadedness, palpitations, PND, syncope, others Gastrointestinal: denies: abdomen distended, abdominal pain, blood streaked bowels, constipated, diarrhea, dysphagia, difficulty swallowing, hematemesis, melena, nausea, poor appetite, poor fluid intake, rectal bleeding, rectal pain, vomiting, others Genitourinary: denies: burning, dysuria, flank pain, frequency, hematuria, incontinence, penile discharge, penile sore, pain, testicle pain, testicle swelling, urgency, others Neurological: denies: dizziness, fainting, headache, left sided numbness, left sided weakness, numbness, paresthesia, pre-existing deficit, right sided numbness, right sided weakness, seizure, speech problems, tingling, tremors, weakness, others Musculoskeletal: denies: back pain, gout, joint pain, joint swelling, muscle pain, muscle stiffness, neck pain, others Integumetry: denies: bruises, change in color, change in hair/nails, dryness, laceration, lesions, lumps, rash, wounds, others Allergic/Immunocompromised: denies: Difficulty Healing, Frequent Infections, Hives, Itching, others Hematologic/Lymphatic: denies: anemia, blood clots, easy bleeding, easy bruising, swollen glands, others Endocrine: denies: excessive hunger, excessive sweating, excessive thirst, excessive urination, flushing, intolerance to cold, intolerance to heat, unexplained weight gain, unexplained weight loss, others Psychiatric: reports: anxiety; denies: bipolar disorder, depression, hopeless, panic disorder, schizophrenia, sleepless, suicidal, others All Other Systems: Reviewed and Negative Physical Exam General Appearance: No Apparent Distress, Normal HEENT: Normal ENT Inspection, Pharynx Normal, TMs Normal Neck: Full Range of Motion, Non-Tender, Normal, Normal Inspection Respiratory: Chest Non-Tender, Lungs Clear, No Accessory Muscle Use, No Respiratory Distress, Normal Breath Sounds Cardiovascular: No Edema, No JVD, No Murmur, No Gallop, Normal Peripheral Pulses, Regular Rate/Rhythm Breast Exam: Deferred Gastrointestinal: No Organomegaly, Non Tender, No Pulsatile Mass, Normal Bowel Sounds, Soft Genitalia: Deferred Pelvic: Deferred Rectal: Deferred Extremities: No calf tenderness, Normal capillary refill, Normal inspection, Normal range of motion, Non-tender, No pedal edema Musculoskeletal : Apperance: Normal Neurologic: Alert, contract writer II-XII nml as Tested, No Motor Deficits, Normal Affect, Normal Mood, No Sensory Deficits Cerebellar Function: Normal Reflexes: Normal Skin: Dry, Normal Color, Warm Lymphatic: No Adenopathy Was a procedure done? Was a procedure done?: No EKG EKG : Pulse Rate (adult): 72 [place]: Normal Cardiac Rhythm: NSR Block: None Hypertrophy: None ST: Normal Differential Dx Considerations may include: Anxiety, ETOH abuse X-Ray, Labs, Meds, VS Vital Signs Date Time Temp Pulse Resp B/P (MAP) Pulse Ox O2 Delivery O2 Flow Rate FiO2 05/14/25 16:42 72 05/14/25 15:53 72 05/14/25 15:40 97.5 78 16 125/78 97 97.5 X-Ray, Labs, Meds, VS Comment Patient no answer for labs or chest x-ray, presumed eloped Time of 1ST Reevaluation: 17:00 Reevaluation 1ST: Unchanged Patient Education/Counseling: Diagnosis, Treatment, Prognosis Family Education/Counseling: No Family Present SEPSIS Sepsis Screen Date sepsis recognized/suspect: May 14, 2025 Time Sepsis recognized/suspect: 1544 Recent Procedure: No On Antibiotic Therapy: No Respiratory Rate >20: No Heart Rate >90: No Temp<36 C (96.8 F) or >38.3 C: No SBP <90 or MAP <65 mmHG: No New Acute Mental Status Change: No Is the patient on CPAP, BIPAP,: No Physician Orders Electrocardigram (05/14/25 15:59) Vital Signs Date Time Temp Pulse Resp B/P (MAP) Pulse Ox O2 Delivery O2 Flow Rate FiO2 05/14/25 16:42 72 05/14/25 15:53 72 05/14/25 15:40 97.5 78 16 125/78 97 97.5 Departure 1 Departure Time of Disposition: 20:27 Impression: Primary Impression: Alcohol abuse Disposition: LEFT AWOL/ELOPED Condition: Stable Discharged With: Self Critical Care Note Critical Care Time?: No Stability Stability form required: No Heart Score Heart Score: Heart Score Response (Comments) Value History N/A 0 EKG N/A 0 Age N/A 0 Risk Factors N/A 0 Troponin N/A 0 Total 0 I personally scribed for TITI NAVARRO ([email or web address]) on 05/14/25 at 16:42. Electronically submitted by Ky Lopez ([email or web address]). TITI NAVARRO May 14, 2025 16:42
--- NOTE | 2025-05-15 07:04 | ECG ---
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
== END 2025-05-14 18:40 | disposition left against medical advice (07) ==
LOC: ER 15:37
DX: F10.10 Alcohol abuse, uncomplicated (principal); F41.9 Anxiety disorder, unspecified; Z79.899 Other long term (current) drug therapy
CPT/HCPCS: 93005

== ENCOUNTER 2025-05-26 20:35 | Emergency (ER) | payer MEDICAID | END 2025-05-26 20:42 | disposition left against medical advice (07) | LOC: ER 20:35 | DX: R00.2 Palpitations (principal); Z53.21 Procedure and treatment not carried out due to patient leaving prior to being seen by health care provider ==

== ENCOUNTER 2025-06-08 17:12 | Emergency (ER) | payer MEDICAID ==
[~2025-06-08] VITALS: Ht 180.3 cm; Wt 142.1 kg
[2025-06-08 18:49] LABS: Hematocrit 44.3 % (41.0-53.0); Hemoglobin 14.6 g/dL (13.5-17.5); Mean Corpuscular Hemoglobin 27.8 pg (28.0-32.0); Mean Corpuscular Volume 84.5 fL (80.0-100.0); Nucleated Red Blood Cells % 0.2 %
--- NOTE | 2025-06-08 18:56 | ED.PDOC ---
History of Present Illness HPI Comments 35-year-old male presents with chief complaint of nonradiating, mid epigastric abdominal pain. Patient endorses sudden, unprovoked, atraumatic onset of tightening pain, earlier, today. No further reported associated symptoms, such as nausea or vomiting. He reports having similar pain several years ago when eating greasy food and is on a carnivore diet currently, and admits to eating greasy meals lately. No other reported changes to lifestyle, diet, or medications. He takes Metoprolol for his hypertension 1x a week. Since arrival to ED, patient states on pain resolving on its own and is asymptomatic, currently. He denies any prior abdominal surgeries. Denies any chest pain, shortness of breath, nausea, vomiting, urinary symptoms. Chief Complaint: Abdominal Pain Time Seen by MD: 18:30 Primary Care Provider: DELFINO Molina Notes: Nurses Notes, Medications, Allergies Allergies: Coded Allergies: NO KNOWN ALLERGIES (Unverified , 11/16/18) Home Meds Active Scripts Ibuprofen (Ibuprofen) 800 Mg Tab, 1 TAB PO TID PRN, #30 TAB 0 Refills Prov:LISSA MENDES 08/18/24 Cyclobenzaprine Hcl (Cyclobenzaprine Hcl) 5 Mg Tab, 1 TAB PO QHSP, #14 TAB 0 Refills Prov:LISSA MENDES 08/18/24 Meloxicam (Meloxicam) 7.5 Mg Tab, 1 TAB PO DAILY, #20 TAB 2 Refills as needed for pain with food Prov:BO LECHUGA MANAGER [employer] 11/17/23 Meloxicam (Meloxicam) 7.5 Mg Tab, 1 TAB PO DAILY for 30 Days, #30 TAB 0 Refills Prov:MAX WARE F MANAGER ACTION 08/26/23 Loratadine & Pseudoephedrine (Loratadine-D 24HR) 24 Hr Tab, 24 HR PO DAILY PRN, #10 TAB Prov:JAMEL LEON 06/05/23 Amoxicillin & Pot Clavulanate (AUGMENTIN TABLET) 875 Mg Tb, 875 MG PO BID for 10 Days, #20 TAB Prov:JAMEL LEON 06/05/23 Cyclobenzaprine Hcl (Cyclobenzaprine Hcl) 5 Mg Tab, 1 TAB PO QPM PRN, #14 TAB 0 Refills Prov:LISSA MENDES 02/06/23 Ibuprofen (Ibuprofen) 800 Mg Tab, 1 TAB PO TID PRN, #30 TAB 0 Refills Prov:LISSA MENDES 02/06/23 Ibuprofen (Ibuprofen) 800 Mg Tab, 1 TAB PO TID PRN, #30 TAB 0 Refills Prov:LISSA MENDES 12/10/22 Benzocaine (Dental) (HURRICAINE SPRAY) 1 Spr Sp, 1 SPR MT QIDP, #1 SPRAY 0 Refills Prov:LISSA MENDES 12/10/22 Amoxicillin & Pot Clavulanate (Amoxicillin/Potassium Cla) 875 Mg Tab, 1 TAB PO BID for 7 Days, #14 TAB 0 Refills Prov:LISSA MENDES 12/10/22 Albuterol Sulfate (VENTOLIN MDI) 90 Mcg Ih, 90 MCG IN Q6HP PRN for 7 Days, #1 MCG Prov:YULIYA BRENNAN MD 01/24/22 Prednisone (Prednisone) 20 Mg Tab, 20 MG PO BID for 4 Days, #8 MG Prov:YULIYA BRENNAN MD 01/24/22 Azithromycin (Azithromycin) 250 Mg Tab, 250 MG PO DAILY, #4 CAP Prov:YULIYA BRENNAN MD 01/24/22 Information Source: Patient Mode of Arrival: Ambulatory Severity: Moderate Timing: Hours Duration: Since onset Prehospital treatment: None Past Medical History PAST MEDICAL HISTORY: HTN (On metformin, mixed compliancy ) Surgical History: Denies all surgeries Family History Family History: Reviewed,noncontributory to illness, Unknown Social History Smoker: Quit Less Than 1 Year Alcohol: Occasionally Drugs: Marijuana Lives In: Home Gastrointestinal: reports: abdominal pain All Other Systems: Reviewed and Negative (Comprehensive review of systems are negative unless otherwise stated in HPI) Physical Exam General Appearance: No Apparent Distress, Obese HEENT: Normal ENT Inspection, Pharynx Normal, TMs Normal Neck: Full Range of Motion, Non-Tender, Normal, Normal Inspection Respiratory: Chest Non-Tender, Lungs Clear, No Accessory Muscle Use, No Respiratory Distress, Normal Breath Sounds Cardiovascular: No Edema, No JVD, No Murmur, No Gallop, Normal Peripheral Pulses, Regular Rate/Rhythm Breast Exam: Deferred Gastrointestinal: No Organomegaly, Non Tender, No Pulsatile Mass, Normal Bowel Sounds, Soft Genitalia: Deferred Pelvic: Deferred Rectal: Deferred Extremities: No calf tenderness, Normal capillary refill, Normal inspection, Normal range of motion, Non-tender, No pedal edema Musculoskeletal : Apperance: Normal 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 Was a procedure done?: No Differential Dx Considerations may include: Gastritis, gastroenteritis, GERD, cholelithiasis, cholecystitis, among others X-Ray, Labs, Meds, VS Vital Signs Date Time Temp Pulse Resp B/P (MAP) Pulse Ox O2 Delivery O2 Flow Rate FiO2 06/08/25 19:20 98.4 70 17 136/84 (101) 96 98.4 06/08/25 17:15 98.3 70 14 141/84 93 98.3 Lab Test 06/08/25 18:50 06/08/25 18:32 Range/Units Urine Color Light-yellow Yellow Urine Clarity Clear Clear Urine pH 6.5 5.0-9.0 Urine Specific Crystal 1.023 1.001-1.035 Urine Protein Negative Negative Urine Ketones Negative Negative Urine Blood Negative Negative /uL Urine Nitrite Negative Negative Urine Bilirubin Negative Negative Urine Urobilinogen Normal Negative mg/dL Urine Leukocyte Esterase Negative Negative /uL Urine RBC 1 0 - 3 /hpf Urine Microscopic WBC 1 0-3 /HPF Urine Squamous Epithelial Cells None seen <5 /hpf Urine Bacteria None seen None Seen /hpf Urine Glucose Normal Normal mg/dL White Blood Count 8.0 4.4-10.8 10^3/uL Red Blood Count 5.24 4.5-5.90 10^6/uL Hemoglobin 14.6 13.5-17.5 g/dL Hematocrit 44.3 41.0-53.0 % Mean Corpuscular Volume 84.5 80.0-100.0 fL Mean Corpuscular Hemoglobin 27.8 L 28.0-32.0 pg Mean Corpuscular Hemoglobin Concent 32.9 32.0-36.0 g/dL Red Cell Distribution Width 13.7 11.8-14.3 % Platelet Count 231 140-450 10^3/uL Mean Platelet Volume 7.4 6.9-10.8 fL Neutrophils (%) (Auto) 60.5 37.0-80.0 % Lymphocytes (%) (Auto) 29.5 10.0-50.0 % Monocytes (%) (Auto) 7.7 0.0-12.0 % Eosinophils (%) (Auto) 1.6 0.0-7.0 % Basophils (%) (Auto) 0.7 0.0-2.0 % Neutrophils # (Auto) 4.8 1.6-8.6 10 ^3/uL Lymphocytes # (Auto) 2.4 0.4-5.4 10 ^3/uL Monocytes # (Auto) 0.6 0-1.3 10 ^3/uL Eosinophils # (Auto) 0.1 0-0.8 10 ^3/uL Basophils # (Auto) 0.1 0-0.2 10 ^3/uL Nucleated Red Blood Cells 0.2 % Sodium Level 140 136-145 mmol/L Potassium Level 4.2 3.5-5.1 mmol/L Chloride Level 104 98-107 mmol/L Carbon Dioxide Level 27 20-31 mmol/L Anion Gap 9 5-15 Blood Urea Nitrogen 21 9-23 mg/dL Creatinine 0.96 0.700-1.30 mg/dL Glomerular Filtration Rate Calc 104 >90 mL/min BUN/Creatinine Ratio 21.9 H 10.0-20.0 Serum Glucose 102 74-106 mg/dL Calcium Level 9.4 8.7-10.4 mg/dL Total Bilirubin 0.2 0.2-1.0 mg/dL Aspartate Amino Transferase (AST) 45 H 13-40 U/L Alanine Aminotransferase (ALT) 48 H 7-40 U/L Alkaline Phosphatase 111 46-116 U/L Total Protein 7.3 5.7-8.2 g/dL Albumin 4.4 3.2-4.8 g/dL Lipase 26 12-53 U/L Current Medications Medications (Trade) Dose Ordered Sig/Jame Route Start Time Stop Time Status Last Admin Al Hydrox/Mg Hydrox/Simethicone (Maalox Plus) 30 ml ONCE ONCE PO 06/08/25 19:00 06/08/25 19:01 DC 06/08/25 19:30 X-Ray, Labs, Meds, VS Comment Patient presents with epigastric pain described as tightening for the past day, now fully resolved in the setting of starting about her weight diet and eating greasy foods. Vital signs stable and exam unremarkable. No tenderness to palpation on my assessment. Lab work (CBC, BMP) to evaluate for evidence of severe anemia, electrolyte abnormality including hypokalemia, hyperkalemia, hypernatremia, hyponatremia, hyperglycemia, hypoglycemia, etc. Urinalysis to evaluate for hematuria or infection GI cocktail Re-evaluate Social determinant surveillance affecting care: Social determinants of health that will affect the patient's care: Poor health literacy (additional time provided an explanation) Poor access to outpatient care/followup (provided outpatient resources) Time of 1ST Reevaluation: 19:10 Reevaluation 1ST: Unchanged Patient Education/Counseling: Diagnosis, Treatment, Need For Follow Up Family Education/Counseling: No Family Present SEPSIS Sepsis Screen Date sepsis recognized/suspect: Jun 08, 2025 Time Sepsis recognized/suspect: 1714 Recent Procedure: No On Antibiotic Therapy: No Respiratory Rate >20: No Heart Rate >90: No Temp<36 C (96.8 F) or >38.3 C: No SBP <90 or MAP <65 mmHG: No New Acute Mental Status Change: No Is the patient on CPAP, BIPAP,: No Vital Signs Date Time Temp Pulse Resp B/P (MAP) Pulse Ox O2 Delivery O2 Flow Rate FiO2 06/08/25 19:20 98.4 70 17 136/84 (101) 96 98.4 06/08/25 17:15 98.3 70 14 141/84 93 98.3 Laboratory Tests Test 06/08/25 18:32 White Blood Count 8.0 10^3/uL (4.4-10.8) Medications Medications Dose Ordered Sig/Jame Route Start Time Stop Time Status Last Admin Dose Admin Al Hydrox/Mg Hydrox/Simethicone 30 ml ONCE ONCE PO 06/08/25 19:00 06/08/25 19:01 DC 06/08/25 19:30 Departure 1 Departure Time of Disposition: 20:12 (On reassessment, patient's symptoms now fully resolved. Repeat abdominal exam soft, nontender, nondistended. Patient tolerating p.o.. Discussed with patient diet modifications at home. Given strict return precautions and PMD and GI follow up.) Impression: Primary Impression: Acute epigastric pain Additional Impression: Acute gastritis Qualified Codes: K29.00 - Acute gastritis without bleeding Disposition: HOME / SELF CARE / HOMELESS Condition: Stable e-Prescriptions Calcium Carbonate-Simethicone (Maalox Advanced Maximum S) 1 Chw Chw 1 CHW PO BIDP PRN for 10 Days, #20 TAB.CHEW Prov: ANKIT YA MD 06/08/25 Discharged With: Self Critical Care Note Critical Care Time?: No Stability Stability form required: No Heart Score Heart Score: Heart Score Response (Comments) Value History N/A 0 EKG N/A 0 Age N/A 0 Risk Factors N/A 0 Troponin N/A 0 Total 0 I personally scribed for ANKIT YA MD ([email or web address]) on 06/08/25 at 18:56. Electronically submitted by Ayush Torres ([email or web address]). ANKIT YA MD Jun 08, 2025 18:56
[2025-06-08 19:06] LABS: Albumin 4.4 g/dL (3.2-4.8); Alkaline Phosphatase 111 U/L (46-116); Anion Gap 9 (5-15); BUN/Creatinine Ratio 21.9 (10.0-20.0); Blood Urea Nitrogen 21 mg/dL (9-23); Calcium 9.4 mg/dL (8.7-10.4); Carbon Dioxide 27 mmol/L (20-31); Chloride 104 mmol/L (98-107); Glucose 102 mg/dL (74-106); Lipase 26 U/L (12-53); Potassium 4.2 mmol/L (3.5-5.1); Sodium 140 mmol/L (136-145); Total Protein 7.3 g/dL (5.7-8.2)
[2025-06-08 19:13] LABS: Alanine Aminotransferase 48 U/L (7-40); Bilirubin, Total 0.2 mg/dL (0.2-1.0)
[2025-06-08] MEDS: MAALOX PLUS or MAALOX 30 ML PO ONE (19:30)
[2025-06-08 19:43] LABS: Urine Protein, UAD Negative (Negative)
[2025-06-08] MEDS ORDERED: CALC100023 PO (20:14)
[2025-06-08 20:28] VITALS: BP 132/76; PULSE 62; RESP 14; TEMP 98.3
[2025-06-08 20:30] VITALS: O2SAT 97
== END 2025-06-08 20:34 | disposition home or self-care (01) ==
LOC: ER 17:12
DX: R10.13 Epigastric pain (principal); K29.00 Acute gastritis without bleeding; I10 Essential (primary) hypertension; Z79.899 Other long term (current) drug therapy
CPT/HCPCS: 36415; 80053; 81001; 83690; 85025